=== PATIENT | female | born 1960 | race Caucasian/White ===

== ENCOUNTER 2017-08-22 10:45 | Emergency (ER) | payer OTHER ==
[~2017-08-22] VITALS: Ht 162.6 cm; Wt 59.2 kg
[~2017-08-22 10:45] MED LIST: CIPR500T4 PO; DICY1TAB26 PO; LISI20 PO; LORTA5 PO; METR500T10 PO; ONDA4TAB7 PO; PROT40TA PO
[2017-08-22 10:52] VITALS: BP 145/98; PULSE 100; RESP 18; TEMP 98.9; O2SAT 100
[2017-08-22] MEDS ORDERED: AMLO5TAB2 PO (11:04)
[2017-08-22] MEDS ORDERED: PROMSYP3 PO (11:38)
[2017-08-22] MEDS ORDERED: AZIT250T3 PO (11:38)
[2017-08-22] MEDS ORDERED: PRED20 PO (11:38)
[2017-08-22] MEDS ORDERED: VENTAER INH (11:38)
--- NOTE | 2017-08-22 11:39 | PD ---
HPI Chief Complaint: Cold / Flu Symptoms Time Seen by Provider: 11:23 Travel History International Travel<30 days: Yes Contact w/Intl Traveler<30days: Yes Name of Country Traveled to: [facility] Traveled to known affect area: No History of Present Illness HPI 56-year-old female here with a productive cough and fever 6 days. Symptoms severity is moderate. Unrelieved by Tessalon Perles. Fevers are subjective. No aggravating or alleviating factors. Denies chest pain or shortness of breath. PFSH Past Medical History Blood Disorders: No Cancer: Yes (BREAST) Cardiovascular Problems: Yes (HTN) High Cholesterol: Yes Chemotherapy: Yes (FINISHED 06/19) Chest Pain: Yes Cerebrovascular Accident: No Diabetes: No Diminished Hearing: No Endocrine: No Gastrointestinal Disorders: Yes (COLITIS) GERD: No Genitourinary: No Hiatal Hernia: Yes Hypertension: Yes Immune Disorder: No Musculoskeletal: No Neurologic: Yes Psychiatric: No Reproductive: No Respiratory: No Migraines: Yes Radiation Therapy: No Seizures: No Ulcer: No Tetanus Vaccination: > 5 Years Influenza Vaccination: No ?: Not Menopausal: Yes Past Surgical History Abdominal Surgery: Yes (APPENDIX) Appendectomy: Yes Cardiac Surgery: No Section: Yes (X2) Cholecystectomy: Yes Ear Surgery: No Eye Surgery: No Gynecologic Surgery: Yes (HYSTERECTOMY AGE 26) Hysterectomy: Yes Mastectomy: Yes (BILATERAL) Neurologic Surgery: No Oral Surgery: No Thoracic Surgery: Yes (BILAT BREATS BIOPSY) Tonsillectomy: Yes Other Surgery: Yes ("ABDI RECONSTRUCTION") Social History Alcohol Use: Yes (OCC) Tobacco Use: No (QUIT 2014) Substance Use: No Allergies-Medications (Allergen,Severity, Reaction): Coded Allergies: diatrizoate meglumine (Unverified Allergy, Severe, ANAPHYLAXIS, 08/22/17) gadobenic acid (Unverified Allergy, Severe, ANAPHYLAXIS, 08/22/17) gadodiamide (Unverified Allergy, Severe, ANAPHYLAXIS, 08/22/17) gadoteridol (Unverified Allergy, Severe, ANAPHYLAXIS, 08/22/17) iodixanol (Unverified Allergy, Severe, ANAPHYLAXIS, 08/22/17) iohexol (Unverified Allergy, Severe, ANAPHYLAXIS, 08/22/17) Uncoded Allergies: NSAIDS (Adverse Reaction, Mild, 4/3/10) ADCVISED NOT TO TAKE DUE TO COLITIS Reported Meds & Prescriptions Reported Meds & Active Scripts Active Reported Amlodipine (Amlodipine Besylate) 5 Mg Tab 5 Mg PO DAILY Review of Systems Except as stated in HPI: all other systems reviewed are Neg General / Constitutional: Positive: Fever Eyes: No: Visual changes HENT: No: Headaches Cardiovascular: No: Chest Pain or Discomfort Respiratory: Positive: Cough Gastrointestinal: No: Abdominal Pain Genitourinary: No: Dysuria Physical Exam Narrative GENERAL: Alert well-appearing 48-year-old female SKIN: Warm and dry. HEAD: Normocephalic. EYES: No injection or drainage. NECK: Supple CARDIOVASCULAR: Regular rate and rhythm. No murmur appreciated RESPIRATORY: Breath sounds equal bilaterally. No accessory muscle use. Rhonchorous cough GASTROINTESTINAL: Abdomen soft, non-tender, nondistended. MUSCULOSKELETAL: No cyanosis, or edema. BACK: Nontender without obvious deformity. No CVA tenderness. Data Data Last Documented VS Vital Signs Date Time Temp Pulse Resp B/P (MAP) Pulse Ox O2 Delivery O2 Flow Rate FiO2 08/22/17 11:01 Room Air 08/22/17 10:52 98.9 100 18 145/98 (114) 100 MDM Medical Decision Making Medical Screen Exam Complete: Yes Emergency Medical Condition: Yes Differential Diagnosis Bronchitis, pneumonia, URI, influenza Narrative Course This is a 56-year-old female here for productive cough 5 days. She is nontoxic -appearing. She has a harsh rhonchorous cough. She'll be treated for bronchitis. Diagnosis Primary Impression: Bronchitis Referrals: Primary Care Physician Additional Instructions: Medication as directed. Stay well-hydrated and rest. Follow-up with your primary doctor Scripts Dextromethorphan-Promethazine Liq (Promethazine-Dextromethorphan Liq) 6.25-15 Mg /5 Ml Syrp 10 ML PO Q6HR Y for COUGH, #120 ML Prov: Antonia Hull PAYMENT MANAGER 08/22/17 Albuterol 18 GM Inh (Ventolin Hfa 18 GM Inh) 90 Mcg/Act Aer 2 PUFF INH Q4-6H Y for SHORTNESS OF BREATH, #1 INHALER 0 Refills Prov: Antonia Hull PAYMENT MANAGER 08/22/17 Prednisone (Prednisone) 20 Mg Tab 40 MG PO DAILY, #10 TAB 0 Refills Take 40 mg (2 tablets) daily for 5 days Prov: Antonia Hull 08/22/17 Azithromycin (Azithromycin) 250 Mg Tab 250 MG PO DIRECTED for Infection, #6 TAB 0 Refills Take 2 tabs (500 mg) on day 1 then 1 tab daily x 4 days. Prov: Antonia Hull 08/22/17 Disposition: 01 DISCHARGE HOME Condition: Stable Antonia Hull Aug 22, 2017 11:39
== END 2017-08-22 11:47 | disposition home or self-care (01) ==
LOC: PHEFT 10:45
DX: J40 Bronchitis, not specified as acute or chronic (principal); R50.9 Fever, unspecified; I10 Essential (primary) hypertension; E78.00 Pure hypercholesterolemia, unspecified; Z85.3 Personal history of malignant neoplasm of breast; Z87.19 Personal history of other diseases of the digestive system; Z86.69 Personal history of other diseases of the nervous system and sense organs; Z87.891 Personal history of nicotine dependence
CPT/HCPCS: 99284